=== PATIENT | male | born 1970 | race Native Hawaiian/Other Pacific Islander ===

== ENCOUNTER 2018-08-25 11:44 | Outpatient (CLI) | payer OTHER | END 2018-08-25 20:01 | disposition home or self-care (01) | LOC: RAD 11:44 | DX: M25.511 Pain in right shoulder (principal); R10.9 Unspecified abdominal pain ==

== ENCOUNTER 2021-09-09 09:18 | Observation (INO) | payer OTHER ==
[~2021-09-09] VITALS: Ht 175.3 cm; Wt 74.6 kg
[2021-09-09] VITALS (9 sets, daily range): BP systolic 109–136; BP diastolic 66–88; TEMP 97.6–98; Ht 175.3 cm; Wt 74.6 kg
[2021-09-09 09:58] LABS: PLATELET COUNT 262 K/uL (142-355)
[2021-09-09 10:06] LABS: POTASSIUM 3.7 mmol/L (3.6-5.2)
[2021-09-10] VITALS: BP 113/70; TEMP 97.9
[2021-09-10 04:00] VITALS: BP 95/61; TEMP 97.6
[2021-09-10 04:38] LABS: PLATELET COUNT 247 K/uL (142-355)
[2021-09-10 05:03] LABS: POTASSIUM 4.2 mmol/L (3.6-5.2)
[2021-09-10 08:00] VITALS: BP 123/77; TEMP 97.7
== END 2021-09-10 11:34 | disposition home or self-care (01) ==
LOC: ED 09:18 → MED/SURG 11:20
PROVIDERS: ADMIT Emergency Medicine; ATTEND Internal Medicine
DX: R07.89 Other chest pain (principal); J44.9 Chronic obstructive pulmonary disease, unspecified; Z72.0 Tobacco use
CPT/HCPCS: 36415; 80053; 82550; 84443; 84484; 85027; 85379; 85610; 93005; 96360; 96372; 96374; 96375; 99220; 99284; G0378; J1650; J2270; J2405; J3490; Q9963

== ENCOUNTER 2022-08-03 11:17 | Outpatient (CLI) | payer OTHER | END 2022-08-03 19:15 | disposition home or self-care (01) | LOC: RAD 11:17 | PROVIDERS: ATTEND Internal Medicine | DX: M54.16 Radiculopathy, lumbar region (principal) ==

== ENCOUNTER 2023-02-04 14:46 | Outpatient (CLI) | payer OTHER | END 2023-02-04 19:53 | disposition home or self-care (01) | LOC: RAD 14:46 | PROVIDERS: ATTEND Nurse Practitioner | DX: M54.2 Cervicalgia (principal); M54.59 Other low back pain ==